=== PATIENT | female | born 1970 | race Caucasian/White ===

== ENCOUNTER 2017-05-25 18:21 | Inpatient (IN) | payer OTHER ==
[2017-05-25 21:10] VITALS: BMI 21.2
[2017-05-25] MEDS ORDERED: MELATONIN 5 MG TABLETS PO PRN (22:00)
--- NOTE | 2017-05-25 22:59 | HP ---
COWS - Scale Resting Pulse: 1= [place] 81-100 Sweatin= Chills/Flushing Restless Observation: 1= Difficult to Sit Still Pupil Size: 0= Normal to Room Light Bone or Joint Aches: 1= Mild Discomfort Runny Nose/ Eye Tearin= Runny Nose/Eyes GI Upset > 30mins: 3= Vomiting/Diarrhea Tremor Observation: 1= Tremor [place], Not Seen Yawning Observation: 1= 1-2x During Session Anxiety or Irritability: 2=Irritable/Anxious Goose Flesh Skin: 0=Smooth Skin COWS Score: 13 CIWA Score - CIWA Score Nausea/Vomitin-No Nausea/No Vomiting Muscle Tremors: 2 Anxiety: 3 Agitation: 2 Paroxysmal Sweats: 2 Orientation: 1-Uncertain about Date Tacttile Disturbances: 0-None Auditory Disturbances: 0-None Visual Disturbances: 0-None Headache: 2-Mild CIWA-Ar Total Score: 12 Admission ROS BHS - HPI Chief Complaint: withdrawal symptoms Allergies/Adverse Reactions: Allergies Allergy/AdvReac Type Severity Reaction Status Date / Time No Known Allergies Allergy Verified 12/06/15 15:11 History of Present Illness: 47 yo female with hx of heroin, alcohol, crack/ cocaine, and klonopin, nicotine dependence is her seeking detox. PMHX: asthma, Hep C, anxiety, insomnia. Denies suicidal / homicidal ideation or suicide attempts. Longest period of sobriety 4 years. Last detox [facility] January 2016. Reports hx of seizure while detoxing from xanax, last episode this past eater. Reports was discharge from Suboxone program at [facility] two weeks ago. SIDE GUIDER review, no record of rx for suboxone therapy. Exam Limitations: No Limitations - Review of Systems Constitutional: Chills, Loss of Appetite, Changes in sleep, Weakness, Unintentional Wgt. Loss (20 lbs since July 04, 2016) EENT: reports: Nose Congestion (currently on abx of sinus infection), Throat Pain, Other (runny nose, deviated septum) Respiratory: reports: Cough (x 2 weeks) Cardiac: reports: No Symptoms Reported GI: reports: Diarrhea, Nausea, Poor Appetite, Poor Fluid Intake : reports: No Symptoms Reported Musculoskeletal: reports: Back Pain, Joint Pain Integumentary: reports: No Symptoms Reported Neuro: reports: See HPI, Headache Endocrine: reports: No Symptoms Reported Hematology: reports: No Symptoms Reported Psychiatric: reports: Orientated x3, Anxious Other Systems: Reviewed and Negative Patient History - Patient Medical History Hx Anemia: No Hx Asthma: Yes Hx Chronic Obstructive Pulmonary Disease (COPD): No Hx Cancer: No Hx Cardiac Disorders: No Hx Congestive Heart Failure: No Hx Hypertension: No Hx Hypercholesterolemia: No Hx Pacemaker: No HX Cerebrovascular Accident: No Hx Seizures: Yes Hx Dementia: No Hx Diabetes: No Hx Gastrointestinal Disorders: Yes Hx Liver Disease: No Hx Genitourinary Disorders: No Hx Sexually Transmitted Disorders: No Hx Renal Disease (ESRD): No Hx Thyroid Disease: No Hx Human Immunodeficiency Virus (HIV): No Hx Hepatitis C: Yes (No treatment ) Hx Depression: Yes Hx Suicide Attempt: Yes (at age 18yrs and in 44y) Hx Bipolar Disorder: No Hx Schizophrenia: No - Patient Surgical History Past Surgical History: Yes Hx Neurologic Surgery: No Hx Cataract Extraction: No Hx Cardiac Surgery: No Hx Lung Surgery: No Hx Breast Surgery: No Hx Breast Biopsy: No Hx Abdominal Surgery: No Hx Appendectomy: No Hx Cholecystectomy: No Hx Genitourinary Surgery: No Hx Section: No Hx Orthopedic Surgery: Yes (fx left ankle 06/21/12 ) Hx Hysterectomy: No Other Surgical History: Left 2 Fingers 12/25, Anesthesia Reaction: No - PPD History Previous Implant?: Yes Documented Results: Negative w/proof Date: 10/02/15 Results: 0mm PPD to be Administered?: No - Reproductive History Patient is a Female of Child Bearing Age (11 -55 yrs old): Yes Last Menstrual Period: 05/18/17 Patient : No - Smoking Cessation Smoking history: Current every day smoker Have you smoked in the past 12 months: Yes Aproximately how many cigarettes per day: 20 Cigars Per Day: 0 Hx Chewing Tobacco Use: No Initiated information on smoking cessation: Yes 'Breaking Loose' booklet given: 05/25/17 - Substance & Tx. History Hx Alcohol Use: Yes Hx Substance Use: Yes Substance Use Type: Alcohol, Cocaine, Heroin, Tranquilizers Hx Substance Use Treatment: Yes ([facility] January 2016) - Substances Abused Alcohol Route: Oral Frequency: Daily Amount used: 1 quart Bacardi Age of first use: 15 Date of Last Use: 05/25/17 Heroin Route: Inhalation Frequency: Daily Amount used: 1 bundle Age of first use: 27 Date of Last Use: 05/25/17 Benzodiazepine (Klonopin) Route: Oral Frequency: Daily Amount used: 2 mg Age of first use: 45 Date of Last Use: 05/23/17 Crack Route: Smoking Frequency: 3-6 times per week Amount used: $100 Age of first use: 15 Date of Last Use: 05/25/17 Family Disease History - Family Disease History Family Disease History: Heart Disease: Mother (alcohol), Other: Mother, Sister ( alcohol) Admission Physical Exam [facility] - Vital Signs Vital Signs: Vital Signs - 24 hr 05/25/17 21:08 Temperature 98.2 F Pulse Rate 81 Respiratory 18 Rate Blood Pressure 110/52 - Physical General Appearance: Yes: Anxious HEENTM: Yes: EOMI, Hearing grossly Normal, Normal ENT Inspection, Normocephalic , Normal Voice, FRED, Pharynx Normal, Tm's normal Respiratory: Yes: Chest Non-Tender, No Respiratory Distress, No Accessory Muscle Use, Wheezing Neck: Yes: No masses,lesions,Nodules, Trachea in good position Breast: Yes: Breast Exam Deferred Cardiology: Yes: Regular Rhythm, Regular Rate Abdominal: Yes: Normal Bowel Sounds, Non Tender, Flat, Soft Genitourinary: Yes: Within Normal Limits Back: Yes: Normal Inspection Musculoskeletal: Yes: Back pain Extremities: Yes: Normal Capillary Refill, Normal Inspection, Normal Range of Motion, Non-Tender Neurological: Yes: transition advisor II-XII NML intact, Fully Oriented, Alert, Motor Strength 5/5, Depressed Affect Integumentary: Yes: Normal Color, Warm, Moist Lymphatic: Yes: Within Normal Limits - Diagnostic (1) Opioid dependence with withdrawal Current Visit: Yes Status: Acute (2) Back pain Current Visit: Yes Status: Acute Qualifiers: Back pain location: low back pain (3) Cocaine dependence, uncomplicated Current Visit: Yes Status: Acute (4) Nicotine dependence Current Visit: Yes Status: Chronic Qualifiers: Nicotine product type: cigarettes (5) Sedative, hypnotic or anxiolytic dependence with withdrawal, uncomplicated Current Visit: Yes Status: Acute (6) Alcohol dependence with withdrawal Current Visit: Yes Status: Acute Qualifiers: Complication of substance-induced condition: uncomplicated Qualified Code(s ): F10.230 - Alcohol dependence with withdrawal, uncomplicated Cleared for Admission [facility] - Detox or Rehab [facility] Level of Care: Medically Managed Detox Regimen/Protocol: Methadone/Valium BHS Breath Alcohol Content Breath Alcohol Content: 0 Urine Pregancy Test - Result Urine Test Results: Negative- NO Line Present Urine Drug Screen - Results Drug Screen Negative: No Urine Drug Screen Results: YAKELIN-Cocaine, OPI-Opiates
[2017-05-25] MEDS ORDERED: METHADONE HCL 10 MG TABLET (FOR DETOX USE ONLY) PO ONE ×2 (23:00→23:07)
[2017-05-25] MEDS ORDERED: IBUPROFEN 400 MG TABLET (FP) PO PRN (23:07)
[2017-05-25] MEDS ORDERED: LOPERAMIDE HCL 2 MG CAPSULE PO PRN (23:07)
[2017-05-25] MEDS ORDERED: NICOTINE POLACRILEX 2 MG GUM BUC PRN (23:07)
[2017-05-25] MEDS ORDERED: hydrOXYzine PAMOATE 50 MG CAPSULE (FP) PO PRN (23:07)
[2017-05-25] MEDS ORDERED: MENTHOL/PHENOL 1 EACH UD MM PRN (23:07)
[2017-05-25] MEDS ORDERED: MAG HYDROX/AL HYDROX/SIMETH 30 ML UNIT-DOSE CUP PO PRN (23:07)
[2017-05-25] MEDS ORDERED: MAGNESIUM HYDROX 2400MG/30ML ORAL SUSPENSION 30 ML CUP PO PRN (23:07)
[2017-05-25] MEDS ORDERED: P-EPHED 60MG/TRIPROLIDI 2.5MG TABLET PO PRN (23:07)
[2017-05-25] MEDS ORDERED: guaiFENesin/D-METHORPHAN HB 10 ML UNIT-DOSE CUPS PO PRN (23:07)
[2017-05-25] MEDS ORDERED: MAGNESIUM CITRATE 300 ML BOTTLE PO PRN (23:07)
[2017-05-25] MEDS ORDERED: ACETAMINOPHEN 325 MG TABLET (FP) PO PRN (23:23)
[2017-05-26] MEDS: diazePAM 5 MG TABLET PO PRN (01:25)
[2017-05-26] MEDS ORDERED: METHADONE HCL 10 MG TABLET (FOR DETOX USE ONLY) PO ONE (01:30)
[2017-05-26] MEDS: diazePAM 5 MG TABLET PO SCH ×4 (01:31→22:28)
[2017-05-26] MEDS: diazePAM 5 MG TABLET PO ONE ×2 (01:31→02:20)
[2017-05-26 01:57] LABS: URINE APPEARANCE TURBID; URINE BILIRUBIN NEGATIVE (<2.0 mg/dL); URINE BLOOD NEGATIVE (NEGATIVE); URINE COLOR YELLOW; URINE GLUCOSE (UA) NEGATIVE (NEGATIVE); URINE KETONE TRACE (NEGATIVE); URINE NITRITE NEGATIVE (NEGATIVE); URINE PROTEIN NEGATIVE (NEGATIVE); URINE UROBILINOGEN NEGATIVE mg/dL (0.2-1.0)
[2017-05-26 02:00] LABS: URINE LEUK ESTERASE 1+ (NEGATIVE)
[2017-05-26 02:14] LABS: EPI CELLS RARE /HPF (FEW)
[2017-05-26] MEDS: LIDOCAINE PATCH REMOVAL MC SCH ×2 (02:21→22:28)
[2017-05-26] MEDS ORDERED: METHADONE HCL 10 MG TABLET (FOR DETOX USE ONLY) PO SCH (10:00)
[2017-05-26 10:16] LABS: HEMATOCRIT 38.7 % (32.4-45.2); MCH 29.5 pg (25.7-33.7); MCHC 33.6 g/dl (32.0-36.0); MEAN CELL VOLUME 87.6 fl (80-96); MEAN PLT VOLUME 8.3 fl (7.5-11.1); PLATELET COUNT 229 K/MM3 (134-434); RBC 4.42 M/mm3 (3.60-5.2); RDW 13.2 % (11.6-15.6); WHITE BLOOD COUNT 8.2 K/mm3 (4.0-10.0)
[2017-05-26 10:26] LABS: CHLORIDE 105 mmol/L (98-107); POTASSIUM 4.4 mmol/L (3.5-5.1); SODIUM 141 mmol/L (136-145)
[2017-05-26 10:33] LABS: ALBUMIN 3.4 g/dl (3.4-5.0); ALK PHOS 52 U/L (45-117); ANION GAP 6 (8-16); BILIRUBIN,TOTAL 0.5 mg/dL (0.2-1.0); BLOOD UREA NITROGEN 15 mg/dL (7-18); CALCIUM 8.9 mg/dL (8.5-10.1); CO2 30 mmol/L (21-32); CREATININE 0.8 mg/dL (0.55-1.02); GLUCOSE,RANDOM 80 mg/dL (74-106); SGOT/AST 18 U/L (15-37); SGPT/ALT 25 U/L (12-78); TOT PROT 6.6 g/dl (6.4-8.2)
[2017-05-26] MEDS: LIDOCAINE 5% TOPICAL PATCH TP SCH (11:05)
[2017-05-26] MEDS: PRENATAL VITAMINS W/ FOLIC ACID TABLET (FP) PO SCH (11:05)
[2017-05-26] MEDS: NICOTINE 21 MG/24 HOURS TOPICAL PATCH TD SCH (11:06)
--- NOTE | 2017-05-26 11:20 | PN ---
[facility] CIWA - CIWA Score Nausea/Vomitin Muscle Tremors: 3 Anxiety: 3 Agitation: 2 Paroxysmal Sweats: 1-Minimal Palms Moist Orientation: 0-Oriented Tacttile Disturbances: 1-Very Mild Itch/Numbness Auditory Disturbances: 1-Very Mild Visual Disturbances: 0-None Headache: 2-Mild CIWA-Ar Total Score: 16 BHS COWS - Scale Resting Pulse: 0= [place] 80 or Below Sweatin= Chills/Flushing Restless Observation: 3= Extraneous Movement Pupil Size: 1= Pupils >than Normal Bone or Joint Aches: 2= Severe Diffuse Aches Runny Nose/ Eye Tearin= Runny Nose/Eyes GI Upset > 30mins: 2= Nausea/Diarrhea Tremor Observation of Outstretched Hands: 2= Slight Tremor Visible Yawning Observation: 1= 1-2x During Session Anxiety or Irritability: 2=Irritable/Anxious Goose Flesh Skin: 0=Smooth Skin COWS Score: 16 [facility] Progress Note (SOAP) Subjective: ALERT,IRRITABLE,ANXIOUS,INTERRUPTED SLEEP,TREMOR,PAIN IN THE BODY AND BACK Objective: 05/26/17 11:18 Vital Signs Temperature 97.8 F 05/26/17 10:08 Pulse Rate 79 05/26/17 10:08 Respiratory Rate 18 05/26/17 10:08 Blood Pressure 100/53 05/26/17 10:08 O2 Sat by Pulse Oximetry (%) EKG NSR,NORMAL ECG Laboratory Last Values WBC 8.2 K/mm3 (4.0-10.0) D 05/26/17 08:30 RBC 4.42 M/mm3 (3.60-5.2) 05/26/17 08:30 Hgb 13.0 GM/dL (10.7-15.3) 05/26/17 08:30 Hct 38.7 % (32.4-45.2) 05/26/17 08:30 MCV 87.6 fl (80-96) 05/26/17 08:30 MCH 29.5 pg (25.7-33.7) 05/26/17 08:30 MCHC 33.6 g/dl (32.0-36.0) 05/26/17 08:30 RDW 13.2 % (11.6-15.6) D 05/26/17 08:30 Plt Count 229 K/MM3 (134-434) 05/26/17 08:30 MPV 8.3 fl (7.5-11.1) 05/26/17 08:30 Sodium 141 mmol/L (136-145) 05/26/17 08:30 Potassium 4.4 mmol/L (3.5-5.1) 05/26/17 08:30 Chloride 105 mmol/L (98-107) 05/26/17 08:30 Carbon Dioxide 30 mmol/L (21-32) 05/26/17 08:30 Anion Gap 6 (8-16) L 05/26/17 08:30 BUN 15 mg/dL (7-18) 05/26/17 08:30 Creatinine 0.8 mg/dL (0.55-1.02) 05/26/17 08:30 Creat Clearance w eGFR > 60 (>60) 05/26/17 08:30 Random Glucose 80 mg/dL (74-106) 05/26/17 08:30 Calcium 8.9 mg/dL (8.5-10.1) 05/26/17 08:30 Total Bilirubin 0.5 mg/dL (0.2-1.0) D 05/26/17 08:30 AST 18 U/L (15-37) 05/26/17 08:30 ALT 25 U/L (12-78) 05/26/17 08:30 Alkaline Phosphatase 52 U/L (45-117) 05/26/17 08:30 Total Protein 6.6 g/dl (6.4-8.2) 05/26/17 08:30 Albumin 3.4 g/dl (3.4-5.0) 05/26/17 08:30 Urine Color Yellow 05/25/17 00:00 Urine Appearance Turbid 05/25/17 00:00 Urine pH 5.0 (5.0-8.0) 05/25/17 00:00 Ur Specific [place] 1.028 (1.001-1.035) 05/25/17 00:00 Urine Protein Negative (NEGATIVE) 05/25/17 00:00 Urine Glucose (UA) Negative (NEGATIVE) 05/25/17 00:00 Urine Ketones Trace (NEGATIVE) H 05/25/17 00:00 Urine Blood Negative (NEGATIVE) 05/25/17 00:00 Urine Nitrite Negative (NEGATIVE) 05/25/17 00:00 Urine Bilirubin Negative (<2.0 mg/dL) 05/25/17 00:00 Urine Urobilinogen Negative mg/dL (0.2-1.0) 05/25/17 00:00 Ur Leukocyte Esterase 1+ (NEGATIVE) H 05/25/17 00:00 Urine WBC (Auto) None /hpf (3-5) 05/25/17 00:00 Urine RBC (Auto) 1 /hpf (0-3) 05/25/17 00:00 Ur Epithelial Cells Rare /HPF (FEW) 05/25/17 00:00 05/26/17 11:19 RPR PENDING Assessment: 05/26/17 11:19 WITHDRAWAL SYMPTOM Plan: CONTINUE DETOX
--- NOTE | 2017-05-26 12:44 | CONSULT ---
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 Pt. shares an apartment with a roomate. This is one of multiple admissions for patient. Pt. admitted to for cocaine and opiate dependence. Substance Abuse History: Smoking Cessation. Smoking history: Current every day smoker. Have you smoked in the past 12 months: Yes. Aproximately how many cigarettes per day: 20. Cigars Per Day: 0. Hx Chewing Tobacco Use: No. Initiated information on smoking cessation: Yes. 'Breaking Loose' booklet given : 05/25/17. - Substance & Tx. History. Hx Alcohol Use: Yes. Hx Substance Use : Yes. Substance Use Type: Alcohol, Cocaine, Heroin, Tranquilizers. Hx Substance Use Treatment: Yes ([facility] January 2016). - Substances Abused. Alcohol. Route: Oral. Frequency: Daily. Amount used: 1 quart Bacardi. Age of first use: 15. Date of Last Use: 05/25/17. Heroin. Route: Inhalation. Frequency: Daily. Amount used: 1 bundle. Age of first use: 27. Date of Last Use: 05/25/17. Benzodiazepine (Klonopin). Route: Oral. Frequency: Daily. Amount used: 2 mg. Age of first use: 45. Date of Last Use: 05/23/17. Crack. Route: Smoking. Frequency: 3-6 times per week. Amount used: $100. Age of first use: 15. Date of Last Use: 05/25/17 Medical History: Asthma, Hep C Psychiatric History: Pt. denies h/o psychiatric hospitalizations, suicide attempts and outpatient care. After reading previous entries patient is unreliable and is not forthcoming with information. Previous entries states patient has been admitted to [facility]. Pt. has also reported one suicide attempt via self mutilation but denied information to current inspector automatic typewriter. Pt. reports currently taking klonopin 2mg PRN (receives prescription from PCP) for anxiety Pt. currently denies suicidal and homicidal ideation. Physical/Sexual Abuse/Trauma History: Denies. Mental Status Exam - Mental Status Exam Alert and Oriented to: Time, Place, Person Cognitive Function: Good Mood: Euthymic Affect: Mood Congruent Patient Behavior: Cooperative Speech Pattern: Appropriate Voice Loudness: Normal Thought Process: Goal Oriented Thought Disorder: Not Present Hallucinations: Denies Suicidal Ideation: Denies Homicidal Ideation: Denies Insight/Judgement: Poor Sleep: Fair Appetite: Fair Muscle strength/Tone: Normal Gait/Station: Normal Psychiatric Findings - Problem List ([place] 1, 2,3) (1) Alcohol dependence with withdrawal Current Visit: Yes Status: Acute Qualifiers: Complication of substance-induced condition: uncomplicated Qualified Code(s ): F10.230 - Alcohol dependence with withdrawal, uncomplicated (2) Cocaine dependence, uncomplicated Current Visit: Yes Status: Acute (3) Opioid dependence with withdrawal Current Visit: Yes Status: Acute (4) Sedative, hypnotic or anxiolytic dependence with withdrawal, uncomplicated Current Visit: Yes Status: Acute (5) Nicotine dependence Current Visit: Yes Status: Chronic Qualifiers: Nicotine product type: cigarettes (6) Drug-induced mood disorder Current Visit: Yes Status: Acute - Initial Treatment Plan Initial Treatment Plan: Psychoeducation provided. Detoxification in progress. Melatonin 5mg ordered by VAMP MARKER. Forest Resource Specialist aware of seroquel doses being prescribed for patient during previous admissions. Seroquel offered but patient refused. No additional medications needed at this time. Will continue to monitor.
--- NOTE | 2017-05-26 16:56 | EKG ---
Test Reason : Blood Pressure : / mmHG Vent. Rate : 070 BPM Atrial Rate : 070 BPM P-R Int : 138 ms QRS Dur : 088 ms QT Int : 414 ms P-R-T Axes : 074 069 051 degrees QTc Int : 447 ms NORMAL SINUS RHYTHM NORMAL ECG NO PREVIOUS ECGS AVAILABLE Confirmed by MD Anusha, Estevan ([id number]) on 05/26/2017 4:56:43 PM Referred By: Confirmed By:Estevan Tavares MD
[2017-05-26] MEDS ORDERED: THIAMINE HCL 100 MG TABLET (FP) PO SCH (22:00)
[2017-05-27] MEDS ORDERED: METHADONE HCL 5 MG TABLET (FOR DETOX USE ONLY) PO SCH (10:00)
[2017-05-27] MEDS ORDERED: diazePAM 5 MG TABLET PO SCH (10:00)
[2017-05-27] MEDS: PRENATAL VITAMINS W/ FOLIC ACID TABLET (FP) PO SCH (10:32)
[2017-05-27] MEDS: NICOTINE 21 MG/24 HOURS TOPICAL PATCH TD SCH (10:33)
[2017-05-27] MEDS: LIDOCAINE 5% TOPICAL PATCH TP SCH (10:33)
--- NOTE | 2017-05-27 11:08 | PN ---
S CIWA - CIWA Score Nausea/Vomitin Muscle Tremors: 3 Anxiety: 2 Agitation: 3 Paroxysmal Sweats: 1-Minimal Palms Moist Orientation: 0-Oriented Tacttile Disturbances: 1-Very Mild Itch/Numbness Auditory Disturbances: 1-Very Mild Visual Disturbances: 1-Very Mild Sensitivity Headache: 2-Mild CIWA-Ar Total Score: 17 BHS COWS - Scale Resting Pulse: 0= [place] 80 or Below Sweatin= Chills/Flushing Restless Observation: 3= Extraneous Movement Pupil Size: 1= Pupils >than Normal Bone or Joint Aches: 2= Severe Diffuse Aches Runny Nose/ Eye Tearin= Runny Nose/Eyes GI Upset > 30mins: 2= Nausea/Diarrhea Tremor Observation of Outstretched Hands: 2= Slight Tremor Visible Yawning Observation: 1= 1-2x During Session Anxiety or Irritability: 2=Irritable/Anxious Goose Flesh Skin: 0=Smooth Skin COWS Score: 16 S Progress Note (SOAP) Subjective: ALERT,IRRITABLE,ANXIOUS,INTERRUPTED SLEEP,TREMOR,PAIN IN THE BODY AND BACK Objective: 05/27/17 11:06 Vital Signs Temperature 97.9 F 05/27/17 10:23 Pulse Rate 68 05/27/17 10:23 Respiratory Rate 18 05/27/17 10:23 Blood Pressure 94/58 05/27/17 10:23 O2 Sat by Pulse Oximetry (%) Laboratory Last Values WBC 8.2 K/mm3 (4.0-10.0) D 05/26/17 08:30 RBC 4.42 M/mm3 (3.60-5.2) 05/26/17 08:30 Hgb 13.0 GM/dL (10.7-15.3) 05/26/17 08:30 Hct 38.7 % (32.4-45.2) 05/26/17 08:30 MCV 87.6 fl (80-96) 05/26/17 08:30 MCH 29.5 pg (25.7-33.7) 05/26/17 08:30 MCHC 33.6 g/dl (32.0-36.0) 05/26/17 08:30 RDW 13.2 % (11.6-15.6) D 05/26/17 08:30 Plt Count 229 K/MM3 (134-434) 05/26/17 08:30 MPV 8.3 fl (7.5-11.1) 05/26/17 08:30 Sodium 141 mmol/L (136-145) 05/26/17 08:30 Potassium 4.4 mmol/L (3.5-5.1) 05/26/17 08:30 Chloride 105 mmol/L (98-107) 05/26/17 08:30 Carbon Dioxide 30 mmol/L (21-32) 05/26/17 08:30 Anion Gap 6 (8-16) L 05/26/17 08:30 BUN 15 mg/dL (7-18) 05/26/17 08:30 Creatinine 0.8 mg/dL (0.55-1.02) 05/26/17 08:30 Creat Clearance w eGFR > 60 (>60) 05/26/17 08:30 Random Glucose 80 mg/dL (74-106) 05/26/17 08:30 Calcium 8.9 mg/dL (8.5-10.1) 05/26/17 08:30 Total Bilirubin 0.5 mg/dL (0.2-1.0) D 05/26/17 08:30 AST 18 U/L (15-37) 05/26/17 08:30 ALT 25 U/L (12-78) 05/26/17 08:30 Alkaline Phosphatase 52 U/L (45-117) 05/26/17 08:30 Total Protein 6.6 g/dl (6.4-8.2) 05/26/17 08:30 Albumin 3.4 g/dl (3.4-5.0) 05/26/17 08:30 Urine Color Yellow 05/25/17 00:00 Urine Appearance Turbid 05/25/17 00:00 Urine pH 5.0 (5.0-8.0) 05/25/17 00:00 Ur Specific [place] 1.028 (1.001-1.035) 05/25/17 00:00 Urine Protein Negative (NEGATIVE) 05/25/17 00:00 Urine Glucose (UA) Negative (NEGATIVE) 05/25/17 00:00 Urine Ketones Trace (NEGATIVE) H 05/25/17 00:00 Urine Blood Negative (NEGATIVE) 05/25/17 00:00 Urine Nitrite Negative (NEGATIVE) 05/25/17 00:00 Urine Bilirubin Negative (<2.0 mg/dL) 05/25/17 00:00 Urine Urobilinogen Negative mg/dL (0.2-1.0) 05/25/17 00:00 Ur Leukocyte Esterase 1+ (NEGATIVE) H 05/25/17 00:00 Urine WBC (Auto) None /hpf (3-5) 05/25/17 00:00 Urine RBC (Auto) 1 /hpf (0-3) 05/25/17 00:00 Ur Epithelial Cells Rare /HPF (FEW) 05/25/17 00:00 RPR Titer Nonreactive (NONREACTIVE) 05/26/17 08:30 Assessment: 05/27/17 11:07 WITHDRAWAL SYMPTOM Plan: CONTINUE DETOX
[2017-05-27 13:53] VITALS: BP 101/62; PULSE 70; TEMP 98.1
[2017-05-27] MEDS: diazePAM 5 MG TABLET PO PRN (15:04)
[2017-05-29] MEDS ORDERED: METHADONE HCL 10 MG TABLET (FOR DETOX USE ONLY) PO SCH (10:00)
[2017-05-29] MEDS ORDERED: diazePAM 5 MG TABLET PO SCH (10:00)
[2017-05-30] MEDS ORDERED: METHADONE HCL 5 MG TABLET (FOR DETOX USE ONLY) PO SCH (06:00)
== END 2017-05-27 16:05 | disposition left against medical advice (07) | DRG 770 ==
LOC: YASAS 18:21 → Y6N 22:35
PROVIDERS: ADMIT Internal Medicine; ATTEND Internal Medicine
PROC: HZ2ZZZZ Detoxification Services for Substance Abuse Treatment (ICD-10-PCS; principal; 2017-05-25)
DX: F11.23 Opioid dependence with withdrawal (principal); F13.230 Sedative, hypnotic or anxiolytic dependence with withdrawal, uncomplicated; F10.230 Alcohol dependence with withdrawal, uncomplicated; F14.20 Cocaine dependence, uncomplicated; F17.210 Nicotine dependence, cigarettes, uncomplicated; F19.24 Other psychoactive substance dependence with psychoactive substance-induced mood disorder; F41.9 Anxiety disorder, unspecified; G47.00 Insomnia, unspecified; J45.909 Unspecified asthma, uncomplicated; M54.5 Low back pain; Z91.5 Personal history of self-harm
CPT/HCPCS: 36415; 80053; 81003; 81015; 85027; 86593; 93005; 93010

== ENCOUNTER 2018-12-08 12:33 | Inpatient (IN) | payer OTHER ==
[2018-12-08 14:26] VITALS: BMI 24.3
--- NOTE | 2018-12-08 14:40 | HP ---
COWS - Scale Resting Pulse: 1= [place] 81-100 Sweatin= Beads of Sweat on Face Restless Observation: 1= Difficult to Sit Still Pupil Size: 1= Pupils >than Normal Bone or Joint Aches: 1= Mild Discomfort Runny Nose/ Eye Tearin= None GI Upset > 30mins: 0= None Tremor Observation: 1= Tremor [place], Not Seen Yawning Observation: 1= 1-2x During Session Anxiety or Irritability: 2=Irritable/Anxious Goose Flesh Skin: 3=Piloerection COWS Score: 14 CIWA Score - Admission Criteria OASAS Guidelines: Admission for Medically Managed Detox: Requires at least one of the followin. CIWA greater than 12 2. Seizures within the past 24 hours 3. Delirium tremens within the past 24 hours 4. Hallucinations within the past 24 hours 5. Acute intervention needed for co occurring medical disorder 6. Acute intervention needed for co occurring psychiatric disorder 7. Severe withdrawal that cannot be handled at a lower level of care (continued vomiting, continued diarrhea, abnormal vital signs) requiring intravenous medication and/or fluids 8. Admitting History and Physical - Admission Chief Complaint: " I want to detox. I failed suboxone treatment and left 1 month ago." History of Present Illness: 48 year old female with history of opioid dependence with withdrawals. She's had 4 overdoseses in a span of time of 6 months. She overdose twice in june of this year. twice in august of this year. She left her suboxone program 1 month ago which she attended for 8 months. She is using up to 1 bundle of heroin intransally daily, last used this morning at 3AM. She is drinking shots of Rum and Khalua and binges when she binges heroin. She wants to detox now and then she will go on to MAT upon completion of detox and rehab. She smokes ciggarettes 1 ppd daily since the age of 15. PMH: Asthma, Seizure and GERD Psurg: Left broken ankle and distal leg with plate and screws History Source: Patient Limitations to Obtaining History: No Limitations - Past Medical History ...LMP: 05/18/17 Musculoskeletal: Yes: Other (left ankle and leg fracture with plate and screws.) - Past Surgical History Additional Past Surgical History: see above - Smoking History Smoking history: Current every day smoker Have you smoked in the past 12 months: Yes Aproximately how many cigarettes per day: 20 - Alcohol/Substance Use Hx Alcohol Use: Yes Number of Drinks Daily: 4 History of Substance Use: reports: Heroin, Prescription Date of Last Use: 12/08/18 - Social History Usual Living Arrangement: Yes: Alone Do you think of yourself as: Straight/Heterosexual ADL: Independent Occupation: [employer] History of Recent Travel: No Admission [facility] Chief Complaint: " I want to detox. I failed suboxone treatment and left 1 month ago." Allergies/Adverse Reactions: Allergies Allergy/AdvReac Type Severity Reaction Status Date / Time No Known Allergies Allergy Verified 12/08/18 14:21 History of Present Illness: 48 year old female with history of opioid dependence with withdrawals. She's had 4 overdoseses in a span of time of 6 months. She overdose twice in june of this year. twice in august of this year. She left her suboxone program 1 month ago which she attended for 8 months. She is using up to 1 bundle of heroin intransally daily, last used this morning at 3AM. She is drinking shots of Rum and Khalua and binges when she binges heroin. She wants to detox now and then she will go on to MAT upon completion of detox and rehab. She smokes ciggarettes 1 ppd daily since the age of 15. PMH: Asthma, Seizure, GERD Psurg: Left broken ankle and distal leg with plate and screws - Ebola screening Have you traveled outside of the country in the last 21 days: No Have you had contact with anyone from an Ebola affected area: No Have you been sick,other than usual withdrawal symptoms: No Do you have a fever: No - Review of Systems Constitutional: Chills, Diaphoresis, Unintentional Wgt. Loss Respiratory: reports: No Symptoms reported Cardiac: reports: No Symptoms Reported GI: reports: Nausea, Abdominal cramping : reports: No Symptoms Reported Musculoskeletal: reports: No Symptoms Reported Integumentary: reports: No Symptoms Reported Neuro: reports: Tremors Endocrine: reports: No Symptoms Reported Hematology: reports: No Symptoms Reported Psychiatric: reports: Judgement Intact, Orientated x3, Agitated, Anxious Other Systems: Reviewed and Negative Patient History - Patient Medical History Hx Anemia: No Hx Asthma: Yes Hx Chronic Obstructive Pulmonary Disease (COPD): No Hx Cancer: No Hx Cardiac Disorders: No Hx Congestive Heart Failure: No Hx Hypertension: No Hx Hypercholesterolemia: No Hx Pacemaker: No HX Cerebrovascular Accident: No Hx Seizures: Yes Hx Dementia: No Hx Diabetes: No Hx Gastrointestinal Disorders: Yes Hx Liver Disease: No Hx Genitourinary Disorders: No Hx Sexually Transmitted Disorders: No Hx Renal Disease (ESRD): No Hx Thyroid Disease: No Hx Human Immunodeficiency Virus (HIV): No Hx Hepatitis C: Yes (No treatment ) Hx Depression: Yes Hx Suicide Attempt: Yes (at age 18yrs and in 44y) Hx Bipolar Disorder: No Hx Schizophrenia: No - Patient Surgical History Past Surgical History: Yes Hx Neurologic Surgery: No Hx Cataract Extraction: No Hx Cardiac Surgery: No Hx Lung Surgery: No Hx Breast Surgery: No Hx Breast Biopsy: No Hx Abdominal Surgery: No Hx Appendectomy: No Hx Cholecystectomy: No Hx Genitourinary Surgery: No Hx Section: No Hx Orthopedic Surgery: Yes (fx left ankle 06/21/12 ) Hx Hysterectomy: No Other Surgical History: Left 2 Fingers 12/25, Anesthesia Reaction: No - PPD History Previous Implant?: Yes Documented Results: Negative w/proof Implanted On Prior [facility] Admission?: Yes Date: 05/28/17 Results: 0mm PPD to be Administered?: Yes - Reproductive History Last Menstrual Period: 05/18/17 - Smoking Cessation Smoking history: Current every day smoker Have you smoked in the past 12 months: Yes Aproximately how many cigarettes per day: 20 Cigars Per Day: 0 Hx Chewing Tobacco Use: No Initiated information on smoking cessation: Yes 'Breaking Loose' booklet given: 12/08/18 - Substances abused Crack Substance route: Smoking Amount used: $40 Age of first use: 15 Date of last use: 12/07/18 Heroin Substance route: Inhalation Frequency: Daily Amount used: 1 bundle Age of first use: 27 Date of last use: 12/08/18 Alcohol Substance route: Oral Frequency: Daily Amount used: uses khalua nad rum Age of first use: 15 (only binges with opioid use) Date of last use: 12/08/18 Admission Physical Exam [facility] - Vital Signs Vital Signs: Vital Signs - 24 hr 12/08/18 14:21 Temperature 97.2 F L Pulse Rate 72 Respiratory 18 Rate Blood Pressure 116/77 - Physical General Appearance: Yes: Moderate Distress, Tremorous, Irritable, Sweating HEENTM: Yes: EOMI, Hearing grossly Normal, Normal ENT Inspection, Normocephalic , Normal Voice, FRED, Pharynx Normal, Tm's normal Respiratory: Yes: Chest Non-Tender, Lungs Clear, Normal Breath Sounds, No Respiratory Distress, No Accessory Muscle Use Neck: Yes: No masses,lesions,Nodules, Supple, Trachea in good position Breast: Yes: Breast Exam Deferred Cardiology: Yes: Regular Rhythm, Regular Rate, S1, S2 Abdominal: Yes: Non Tender, Soft, Increased Bowel Sounds Genitourinary: Yes: Within Normal Limits Back: Yes: Normal Inspection Musculoskeletal: Yes: full range of Motion, Gait Steady Extremities: Yes: Normal Capillary Refill, Normal Inspection, Normal Range of Motion, Non-Tender 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, Fully Oriented, Alert, Motor Strength 5/5, Normal Mood/Affect Integumentary: Yes: Normal Color, Warm Lymphatic: Yes: Within Normal Limits - Diagnostic (1) Cocaine dependence, uncomplicated Current Visit: Yes Status: Acute (2) Opioid dependence with withdrawal Current Visit: Yes Status: Acute (3) GERD (gastroesophageal reflux disease) Current Visit: Yes Status: Chronic Qualifiers: (4) Nicotine dependence Current Visit: Yes Status: Chronic Qualifiers: Nicotine product type: cigarettes (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
[2018-12-08] MEDS ORDERED: MAGNESIUM HYDROX 2400MG/30ML ORAL SUSPENSION 30 ML CUP PO PRN (14:48)
[2018-12-08] MEDS ORDERED: ACETAMINOPHEN 325 MG TABLET (FP) PO PRN ×2 (14:48)
[2018-12-08] MEDS ORDERED: MAG HYDROX/AL HYDROX/SIMETH 30 ML UNIT-DOSE CUP PO PRN (14:48)
[2018-12-08] MEDS ORDERED: MENTHOL/PHENOL 1 EACH UD MM PRN (14:48)
[2018-12-08] MEDS ORDERED: BISMUTH SUBSALICYLATE 262 MG/15 ML BTL PO PRN (14:48)
[2018-12-08] MEDS ORDERED: MAGNESIUM CITRATE 300 ML BOTTLE PO PRN (14:48)
[2018-12-08] MEDS ORDERED: IBUPROFEN 400 MG TABLET (FP) PO PRN (14:48)
[2018-12-08] MEDS ORDERED: cloNIDine HCL 0.1 MG TABLET PO PRN (14:48)
[2018-12-08] MEDS ORDERED: METHADONE HCL 10 MG TABLET (FOR DETOX USE ONLY) PO ONE (15:40)
[2018-12-08 17:52] LABS: HEMATOCRIT 39.7 % (32.4-45.2); HEMOGLOBIN 12.9 GM/dL (10.7-15.3); MCH 28.4 pg (25.7-33.7); MCHC 32.6 g/dl (32.0-36.0); MEAN CELL VOLUME 87.1 fl (80-96); MEAN PLT VOLUME 8.5 fl (7.5-11.1); PLATELET COUNT 255 K/MM3 (134-434); RBC 4.56 M/mm3 (3.60-5.2); RDW 15.5 % (11.6-15.6); WHITE BLOOD COUNT 6.9 K/mm3 (4.0-10.0)
[2018-12-08 18:05] LABS: ALBUMIN 3.6 g/dl (3.4-5.0); BILIRUBIN,TOTAL 0.3 mg/dL (0.2-1); BLOOD UREA NITROGEN 16.4 mg/dL (7-18); CALCIUM 8.7 mg/dL (8.5-10.1); CREATININE 0.8 mg/dL (0.55-1.3); POTASSIUM 4.3 mmol/L (3.5-5.1); TOT PROT 6.7 g/dl (6.4-8.2)
[2018-12-08] MEDS: GABAPENTIN 300 MG CAPSULE (FP) PO SCH (22:09)
[2018-12-08] MEDS: hydrOXYzine PAMOATE 25 MG CAPSULE (FP) PO PRN (22:09)
[2018-12-08] MEDS: THIAMINE HCL 100 MG TABLET (FP) PO SCH (22:09)
[2018-12-08] MEDS: MELATONIN 5 MG TABLETS PO PRN (22:10)
[2018-12-09] MEDS: GABAPENTIN 300 MG CAPSULE (FP) PO SCH ×3 (05:32→22:18)
[2018-12-09] MEDS: hydrOXYzine PAMOATE 25 MG CAPSULE (FP) PO PRN ×2 (06:36→19:44)
[2018-12-09] MEDS ORDERED: METHADONE HCL 5 MG TABLET (FOR DETOX USE ONLY) ONE (09:21)
[2018-12-09] MEDS ORDERED: METHADONE HCL 10 MG TABLET (FOR DETOX USE ONLY) ONE (09:22)
[2018-12-09] MEDS: NICOTINE 14 MG/24 HOURS TOPICAL PATCH TD SCH (09:43)
[2018-12-09] MEDS: PRENATAL VITAMINS W/ FOLIC ACID TABLET (FP) PO SCH (09:43)
[2018-12-09] MEDS ORDERED: METHADONE (DETOX) 20 MG, METHADONE (DETOX) 5 MG PO ONE (10:00)
--- NOTE | 2018-12-09 10:25 | PN ---
[facility] COWS - Scale Resting Pulse: 0= [place] 80 or Below Sweatin= Chills/Flushing Restless Observation: 1= Difficult to Sit Still Pupil Size: 0= Normal to Room Light Bone or Joint Aches: 2= Severe Diffuse Aches Runny Nose/ Eye Tearin= Runny Nose/Eyes GI Upset > 30mins: 0= None Tremor Observation of Outstretched Hands: 2= Slight Tremor Visible Yawning Observation: 2= >3x During Session Anxiety or Irritability: 2=Irritable/Anxious Goose Flesh Skin: 0=Smooth Skin COWS Score: 12 BHS Progress Note (SOAP) Subjective: sweats shakes interrupted sleep nasal congestion nausea body aches Objective: 12/09/18 10:25 Vital Signs Temperature 98.2 F 12/09/18 09:36 Pulse Rate 70 12/09/18 09:36 Respiratory Rate 16 12/09/18 09:36 Blood Pressure 98/50 L 12/09/18 09:36 O2 Sat by Pulse Oximetry (%) Laboratory Tests 12/08/18 12/08/18 12/08/18 15:10 15:10 15:10 WBC 6.9 RBC 4.56 Hgb 12.9 Hct 39.7 MCV 87.1 MCH 28.4 MCHC 32.6 RDW 15.5 D Plt Count 255 MPV 8.5 Sodium 140 Potassium 4.3 Chloride 104 Carbon Dioxide 30 Anion Gap 6 L BUN 16.4 Creatinine 0.8 Est GFR (CKD-EPI)AfAm 102.47 Est GFR (CKD-EPI)NonAf 88.41 Random Glucose 81 Calcium 8.7 Total Bilirubin 0.3 AST 12 L ALT 12 L Alkaline Phosphatase 58 Total Protein 6.7 Albumin 3.6 RPR Titer Nonreactive labs noted [id number] ambulating no acute distress Assessment: 12/09/18 10:25 withdrawals Plan: continue detox increase fluids ocean spray n/s actified prn
[2018-12-09] MEDS ORDERED: SODIUM CHLORIDE NASAL SPRAY 44 ML BOTTLE NS PRN (10:26)
[2018-12-09] MEDS ORDERED: P-EPHED 60MG/TRIPROLIDI 2.5MG TABLET PO PRN (10:26)
[2018-12-09] MEDS: METHOCARBAMOL 500 MG TABLET PO PRN (22:18)
[2018-12-09] MEDS: THIAMINE HCL 100 MG TABLET (FP) PO SCH (22:18)
[2018-12-09] MEDS: MELATONIN 5 MG TABLETS PO PRN (22:19)
[2018-12-10] MEDS: GABAPENTIN 300 MG CAPSULE (FP) PO SCH (05:48)
[2018-12-10] MEDS: hydrOXYzine PAMOATE 25 MG CAPSULE (FP) PO PRN (05:48)
[2018-12-10 09:44] VITALS: BP 123/72; PULSE 63; TEMP 97.7
[2018-12-10] MEDS ORDERED: METHADONE HCL 10 MG TABLET (FOR DETOX USE ONLY) PO ONE (10:00)
[2018-12-10] MEDS: METHOCARBAMOL 500 MG TABLET PO PRN (10:37)
[2018-12-10] MEDS: NICOTINE 14 MG/24 HOURS TOPICAL PATCH TD SCH (10:38)
[2018-12-10] MEDS: PRENATAL VITAMINS W/ FOLIC ACID TABLET (FP) PO SCH (10:38)
--- NOTE | 2018-12-10 12:17 | PN ---
[facility] Progress Note Note: pt got up and states I am leaving I need a cigarette and the patch or gum isnt helping. Pt was addressed about the risks of relapsing, seizures, OD, and or loss but pt insisted on leaving and chose to sign out AMA. All disciplines (nursing, medical, counseling) tried to speak with pt but refused to listen and chose to sign out.
--- NOTE | 2018-12-10 12:18 | DS ---
[facility] Detox Discharge Summary Admission Date: 12/08/18 - History Present History: Alcohol Dependence, Opioid Dependence - Physical Exam Results Vital Signs: Vital Signs Temperature 97.7 F 12/10/18 09:44 Pulse Rate 63 12/10/18 09:44 Respiratory Rate 20 12/10/18 09:44 Blood Pressure 123/72 12/10/18 09:44 O2 Sat by Pulse Oximetry (%) - Treatment Hospital Course: Discharged Condition Good, Rehab Referral Accepted - Medication Discharge Medications: Ambulatory Orders Gabapentin [Neurontin] 600 mg PO TID 12/08/18 - Diagnosis (1) Alcohol dependence with withdrawal Status: Chronic Qualifiers: Complication of substance-induced condition: uncomplicated Qualified Code(s ): F10.230 - Alcohol dependence with withdrawal, uncomplicated (2) Back pain Status: Acute Qualifiers: Back pain location: low back pain (3) Benzodiazepine dependence Status: Chronic (4) Cocaine dependence, uncomplicated Status: Chronic (5) Drug-induced mood disorder Status: Acute (6) Opioid dependence with withdrawal Status: Acute (7) Sedative, hypnotic or anxiolytic dependence with withdrawal, uncomplicated Status: Chronic (8) GERD (gastroesophageal reflux disease) Status: Chronic Qualifiers: Esophagitis presence: without esophagitis (9) Nicotine dependence Status: Chronic Qualifiers: Nicotine product type: cigarettes Substance use status: uncomplicated Qualified Code(s): F17.210 - Nicotine dependence, cigarettes, uncomplicated (10) Opioid dependence, uncomplicated Status: Chronic (11) Substance-induced sleep disorder Status: Chronic - AMA Did Patient Leave Against Medical Advice: Yes
[2018-12-11] MEDS ORDERED: METHADONE (DETOX) 10 MG, METHADONE (DETOX) 5 MG PO ONE (10:00)
[2018-12-12] MEDS ORDERED: METHADONE HCL 10 MG TABLET (FOR DETOX USE ONLY) PO ONE (10:00)
[2018-12-13] MEDS ORDERED: METHADONE HCL 5 MG TABLET (FOR DETOX USE ONLY) PO ONE (06:00)
== END 2018-12-10 11:40 | disposition left against medical advice (07) | DRG 770 ==
LOC: YASAS 12:33 → Y6N 15:38
PROVIDERS: ADMIT Allergy & Immunology; ATTEND Allergy & Immunology
PROC: HZ2ZZZZ Detoxification Services for Substance Abuse Treatment (ICD-10-PCS; principal; 2018-12-08)
DX: F10.230 Alcohol dependence with withdrawal, uncomplicated (principal); F11.23 Opioid dependence with withdrawal; F13.230 Sedative, hypnotic or anxiolytic dependence with withdrawal, uncomplicated; F14.20 Cocaine dependence, uncomplicated; F17.210 Nicotine dependence, cigarettes, uncomplicated; F19.282 Other psychoactive substance dependence with psychoactive substance-induced sleep disorder; F19.24 Other psychoactive substance dependence with psychoactive substance-induced mood disorder; F32.9 Major depressive disorder, single episode, unspecified; K21.9 Gastro-esophageal reflux disease without esophagitis; B18.2 Chronic viral hepatitis C; J45.909 Unspecified asthma, uncomplicated; M54.5 Low back pain; G40.909 Epilepsy, unspecified, not intractable, without status epilepticus; Z91.5 Personal history of self-harm
CPT/HCPCS: 36415; 80053; 85027; 86593